=== PATIENT | male | born 1975 | race American Indian/Alaskan Native ===

== ENCOUNTER 2018-09-02 14:56 | Observation (INO) | payer MEDICAID ==
[2018-09-02 15:00] VITALS: BMI 34.8
[2018-09-02] MEDS ORDERED: Sodium Chloride 0.9% 1,000 ML IV STA (15:29)
--- NOTE | 2018-09-02 15:33 | ED PDOC ---
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 Patient recently began taking DM version promethozine, which patient states makes him drowsy. Patient denies any fever, chest pain, headache, SOB, n/v/d, abdominal pain, or any other complaints. Time/Duration: Prior to Arrival Symptom Onset: Gradual Symptom Course: Unchanged Activities at Onset: Light Context: Other (hospitla visiting father) Past Medical History - Provider Review Nursing Documentation Reviewed: Yes - Infectious Disease Hx of Infectious Diseases: None - Cardiac Hx Hypertension: Yes - Pulmonary Hx Asthma: Yes Hx Bronchitis: Yes - Psychiatric Hx Substance Use: No - Anesthesia Hx Anesthesia: No Hx Anesthesia Reactions: No Hx Malignant Hyperthermia: No Family/Social History - Physician Review Nursing Documentation Reviewed: Yes Family/Social History: Unknown Family HX Smoking Status: Never Smoked Hx Alcohol Use: No Hx Substance Use: No Allergies/Home Meds Allergies/Adverse Reactions: Allergies No Known Allergies Allergy (Verified 09/02/18 15:11) Review of Systems - Physician Review All systems were reviewed & negative as marked: Yes - Review of Systems Constitutional: Normal Eyes: Normal ENT: Normal Respiratory: Normal. absent: SOB, Cough Cardiovascular: Normal. absent: Chest Pain Gastrointestinal: Normal. absent: Abdominal Pain, Diarrhea, Nausea, Vomiting Genitourinary Male: Normal. absent: Frequency, Hematuria Musculoskeletal: Normal. absent: Back Pain, Neck Pain Skin: Normal. absent: Rash Neurological: Dizziness Endocrine: Diaphoresis Hemo/Lymphatic: Normal Psychiatric: Normal Physical Exam - Physical Exam Narrative Physical Exam (Text): 09/02/18 15:34 Constitutional: No acute distress. Head: Normocephalic. Atraumatic. Eyes: PERRL. ENT: Moist mucous membranes. Neck: Supple. Cardiovascular: Regular rate. Chest: No tenderness. Respiratory: Clear to auscultation bilaterally. GI: Soft. Nontender. Nondistended. Back: No CVA tenderness. Musculoskeletal: No tenderness or swelling of extremities. Skin: No rash. Neurologic: Alert, no focal deficit. Vital Signs Temp Pulse Resp BP Pulse Ox 09/02/18 14:58 97.4 F L 87 19 131/78 98 Medical Decision Making ED Course and Treatment: 09/02/18 15:34 Impression: 43 year old male presents to the ED complaining of an episode of sweating and wooziness. Plan: -- EKG -- CXR -- Sodium Chloride Progress Notes: EKG NSR 75 bpm, large voltages. T wave inversion V6. 09/02/18 16:46 CXR reviewed, shows: FINDINGS: Examination limited by habitus. LUNGS: No focal consolidation. Please note that chest x-ray has limited sensitivity for the detection of pulmonary masses. PLEURA: No significant pleural effusion identified. No definite pneumothorax . CARDIOVASCULAR: Heart size appears within limits. No significant atherosclerotic calcification present. OSSEOUS STRUCTURES: Degenerative changes. VISUALIZED UPPER ABDOMEN: Unremarkable. OTHER FINDINGS: None. IMPRESSION: No focal consolidation. Dr. Patel accepts patient for observation to hospitalist service. - Scribe Statement The provider has reviewed the documentation as recorded by the Scribe Mala Abarca All medical record entries made by the Scribe were at my direction and personally dictated by me. I have reviewed the chart and agree that the record accurately reflects my personal performance of the history, physical exam, medical decision making, and the department course for this patient. I have also personally directed, reviewed, and agree with the discharge instructions and disposition. Disposition/Present on Arrival - Present on Arrival Any Indicators Present on Arrival: No History of DVT/PE: No History of Uncontrolled Diabetes: No Urinary Catheter: No History of Decub. Ulcer: No History Surgical Site Infection Following: None - Disposition Have Diagnosis and Disposition been Completed?: Yes Diagnosis: Elevated CK, Near syncope Disposition: HOSPITALIZED Disposition Time: 17:45 Patient Plan: Observation, Telemetry Condition: FAIR
[2018-09-02 16:00] LABS: EOS # 0.1 (0.0-0.7); EOS % 1.3 % (1.5-5.0); GRAN # 7.11 (1.4-6.5); GRAN % 72.8 % (50.0-68.0); LYMPH # 1.9 (1.2-3.4); MEAN CELL VOLUME 91.9 fl (80.0-105.0); MEAN CORPUSCULAR HGB CONC 32.6 g/dl (31.0-37.0); MEAN PLATELET VOLUME 10.3 fl (7.0-11.0); MONO # 0.7 (0.1-0.6); MONO % 6.9 % (1.0-6.0); RBC 5.34 10^6/uL (3.5-6.1); RED CELL DISTRIBUTION WIDTH 14.8 % (11.5-14.5); WHITE BLOOD COUNT 9.8 10^3/uL (4.5-11.0)
[2018-09-02 16:21] LABS: ALB/GLOB RATIO 1.2 (1.1-1.8); ALBUMIN 3.7 g/dL (3.0-4.8); ALT/SGPT 66 U/L (7-56); AST/SGOT 59 U/L (17-59); BLOOD UREA NITROGEN 20 mg/dL (7-21); CALCIUM 9.6 mg/dL (8.4-10.5); GFR NON-AFRICAN AMERICAN > 60
[2018-09-02 16:28] LABS: TROPONIN I 0.02 ng/mL
--- NOTE | 2018-09-02 16:44 | RAD ---
HISTORY: lightheaded COMPARISON: None available. TECHNIQUE: Chest, one view. FINDINGS: Examination limited by habitus. LUNGS: No focal consolidation. Please note that chest x-ray has limited sensitivity for the detection of pulmonary masses. PLEURA: No significant pleural effusion identified. No definite pneumothorax . CARDIOVASCULAR: Heart size appears within limits. No significant atherosclerotic calcification present. OSSEOUS STRUCTURES: Degenerative changes. VISUALIZED UPPER ABDOMEN: Unremarkable. OTHER FINDINGS: None. IMPRESSION: No focal consolidation.
[2018-09-02 16:54] LABS: CK-MB 1.6 ng/mL (0.0-3.6)
[2018-09-02] MEDS ORDERED: Sodium Chloride 0.9% 1,000 ML IV SCH (19:45)
[2018-09-03 00:16] LABS: BASO # 0.01 K/mm3 (0.0-2.0); BASO % 0.1 % (0.0-3.0); EOS # 0.2 (0.0-0.7); EOS % 1.6 % (1.5-5.0); GRAN # 5.81 (1.4-6.5); GRAN % 61.3 % (50.0-68.0); HEMOGLOBIN 16.1 g/dL (14.0-18.0); LYMPH # 2.8 (1.2-3.4); LYMPH % 29.3 % (22.0-35.0); MEAN CELL VOLUME 91.5 fl (80.0-105.0); MEAN CORPUSCULAR HEMOGLOBIN 30.3 pg (25.0-35.0); MEAN CORPUSCULAR HGB CONC 33.1 g/dl (31.0-37.0); MONO # 0.7 (0.1-0.6); MONO % 7.7 % (1.0-6.0); RBC 5.31 10^6/uL (3.5-6.1); RED CELL DISTRIBUTION WIDTH 14.9 % (11.5-14.5); WHITE BLOOD COUNT 9.5 10^3/uL (4.5-11.0)
[2018-09-03] MEDS ORDERED: Albuterol-Ipratrop 3 mg / 0.5 (3 ml) UD IH PRN (00:18)
[2018-09-03 00:31] LABS: ALB/GLOB RATIO 1.1 (1.1-1.8); ALBUMIN 3.8 g/dL (3.0-4.8); ALT/SGPT 61 U/L (7-56); AST/SGOT 62 U/L (17-59); BLOOD UREA NITROGEN 20 mg/dL (7-21); CALCIUM 9.7 mg/dL (8.4-10.5); GFR NON-AFRICAN AMERICAN > 60
[2018-09-03 00:48] LABS: TROPONIN I 0.01 ng/mL
[2018-09-03] MEDS ORDERED: Levalbuterol 0.63 MG/3 ML Inhal Soln UD IH PRN (00:48)
[2018-09-03] MEDS ORDERED: Levalbuterol 1.25 MG/3 ML Inhal Soln UD IH PRN (00:49)
[2018-09-03] MEDS ORDERED: Labetalol 5 mg/ml Inj 20ML IV ONE (00:54)
[2018-09-03] MEDS ORDERED: Nitroglycerin 2% Ointment Foilpak UD TOP PRN (01:15)
[2018-09-03 01:19] LABS: OPIATES, UR NEGATIVE (NEGATIVE); PHENCYCLIDINE, UR NEGATIVE (NEGATIVE)
[2018-09-03 01:24] LABS: BARBITURATES, UR NEGATIVE (NEGATIVE); BENZODIAZEPINES, UR NEGATIVE (NEGATIVE)
--- NOTE | 2018-09-03 02:19 | CP.PCM.HP ---
<Bacilio Guerrero - Last Filed: 09/03/18 01:43> History of Present Illness - History of Present Illness History of Present Illness: Bacilio Peñalozael PGY1 - Internal Medicine Pan Puller - Medicine H&P CC: Syncope/Near syncope 43M w/ a PMH of asthma, and HTN presented to [facility] ED on 09/02 after having [employer] SERVICE SALES REPRESENTATIVE called on him earlier in the day while he was visiting family member for complaints of syncope/near syncope. Patient reported that for the past week he has been having complaints of cough/ asthma exacerbation, fevers, prior to complaints of lightheadedness patient reported taking promethazine and losartan. Patient reports during [employer] SALES REPRESENTATIVE he was asked to ambulated and was subsequently shown to have gait instability. During [employer] SALES REPRESENTATIVE patient was normotensive as reported by patient. He states he felt dizzy during [employer] REPRESENTATIVE however did not loose consciousness. Upon evaluation patient is no longer complaining of dizziness or lightheadedness. After being transferred to floors, he was found to have elevated blood pressure and pressure like chest pain. He reports the pressure began after being given apresoline dose. Upon ROS patient is complaining of shortness of breath, cough, improved chest pressure, Denies abd pain, n/v/d/c, hematuria, dysuria PMD: [facility] Pharmacy: [facility] - [phone] PMH: asthma, htn PSH: denies Home Rx: Prednisone 10mg QD, Promethazine prn, levaquin 750mg daily (started 08/29), Allergies: NKDA Social: Denies smoking, etoh, illicit drugs Fam Hx: Father: DM, HTN, HLD, CAD; Mother passed unknown causes Present on Admission - Present on Admission Any Indicators Present on Admission: No Review of Systems - Review of Systems All systems: reviewed and no additional remarkable complaints except Review of Systems: as per HPI Past Patient History - Infectious Disease Hx of Infectious Diseases: None - Past Social History Smoking Status: Never Smoked - CARDIAC Hx Hypertension: Yes - PULMONARY Hx Asthma: Yes Hx Bronchitis: Yes - MUSCULOSKELETAL/RHEUMATOLOGICAL Hx Falls: No - PSYCHIATRIC Hx Substance Use: No - SURGICAL HISTORY Hx Surgeries: No - ANESTHESIA Hx Anesthesia: No Hx Anesthesia Reactions: No Hx Malignant Hyperthermia: No Meds Allergies/Adverse Reactions: Allergies Allergy/AdvReac Type Severity Reaction Status Date / Time No Known Allergies Allergy Verified 09/02/18 15:11 Physical Exam - Constitutional Appears: Well, Non-toxic, In Acute Distress - Head Exam Head Exam: ATRAUMATIC, NORMOCEPHALIC - Eye Exam Eye Exam: EOMI, Normal appearance, PERRL - ENT Exam ENT Exam: Mucous Membranes Moist, Normal Exam - Neck Exam Neck exam: Positive for: Normal Inspection - Respiratory Exam Respiratory Exam: Decreased Breath Sounds, Wheezes - Cardiovascular Exam Cardiovascular Exam: RRR, +S1, +S2. absent: Systolic Murmur - GI/Abdominal Exam GI & Abdominal Exam: Normal Bowel Sounds, Soft. absent: Tenderness - Extremities Exam Extremities exam: Positive for: pedal pulses present (2+ PT/DP BL ) - Neurological Exam Neurological exam: Alert, CN II-XII Intact, Oriented x3 - Psychiatric Exam Psychiatric exam: Normal Affect, Normal Mood - Skin Skin Exam: Dry, Intact, Normal Color, Warm Results - Vital Signs Recent Vital Signs: Last Vital Signs Temp 98 F 09/02/18 21:11 Pulse 89 09/03/18 01:20 Resp 20 09/02/18 21:11 BP 181/111 H 09/03/18 01:13 Pulse Ox 98 09/02/18 21:11 - Labs Result Diagrams: 09/02/18 23:59 09/02/18 23:59 Labs: Laboratory Results - last 24 hr 09/02/18 09/02/18 09/02/18 15:50 15:50 23:59 WBC 9.8 9.5 RBC 5.34 5.31 Hgb 16.0 16.1 Hct 49.1 48.6 MCV 91.9 91.5 MCH 30.0 30.3 MCHC 32.6 33.1 RDW 14.8 H 14.9 H Plt Count 296 313 MPV 10.3 10.0 Gran % 72.8 H 61.3 Lymph % (Auto) 19.0 L 29.3 [place] % (Auto) 6.9 H 7.7 H Eos % (Auto) 1.3 L 1.6 Baso % (Auto) 0.0 0.1 Gran # 7.11 H 5.81 Lymph # (Auto) 1.9 2.8 [place] # (Auto) 0.7 H 0.7 H Eos # (Auto) 0.1 0.2 Baso # (Auto) 0.00 0.01 Sodium 138 Potassium 4.0 Chloride 101 Carbon Dioxide 32 Anion Gap 9 L BUN 20 Creatinine 1.2 Est GFR ( Amer) > 60 Est GFR (Non-Af Amer) > 60 Random Glucose 114 H Calcium 9.6 Phosphorus Magnesium Total Bilirubin 0.5 AST 59 ALT 66 H Alkaline Phosphatase 79 Total Creatine Kinase 1027 H CK-MB (CK-2) 1.6 CK-MB (CK-2) % Cancelled Troponin I 0.02 Total Protein 6.8 Albumin 3.7 Globulin 3.1 Albumin/Globulin Ratio 1.2 Urine Opiates Screen Urine Methadone Screen Ur Barbiturates Screen Ur Phencyclidine Scrn Ur Amphetamines Screen U Benzodiazepines Scrn U Oth Cocaine Metabols U Cannabinoids Screen 09/02/18 09/03/18 23:59 00:46 WBC RBC Hgb Hct MCV MCH MCHC RDW Plt Count MPV Gran % Lymph % (Auto) [place] % (Auto) Eos % (Auto) Baso % (Auto) Gran # Lymph # (Auto) [place] # (Auto) Eos # (Auto) Baso # (Auto) Sodium 139 Potassium 4.4 Chloride 104 Carbon Dioxide 29 Anion Gap 11 BUN 20 Creatinine 1.1 Est GFR ( Amer) > 60 Est GFR (Non-Af Amer) > 60 Random Glucose 115 H Calcium 9.7 Phosphorus 2.3 L Magnesium 2.0 Total Bilirubin 0.4 AST 62 H ALT 61 H Alkaline Phosphatase 94 Total Creatine Kinase CK-MB (CK-2) CK-MB (CK-2) % Troponin I 0.01 D Total Protein 7.3 Albumin 3.8 Globulin 3.5 Albumin/Globulin Ratio 1.1 Urine Opiates Screen Negative Urine Methadone Screen Negative Ur Barbiturates Screen Negative Ur Phencyclidine Scrn Negative Ur Amphetamines Screen Negative U Benzodiazepines Scrn Negative U Oth Cocaine Metabols Negative U Cannabinoids Screen Negative Assessment & Plan - Assessment and Plan (Free Text) Assessment: 43M w/ a PMH of asthma, and HTN presented to [facility] ED on 09/02 after having [employer] SAL[employer] REPRESENTATIVE called on him earlier in the day while he was visiting family member for complaints of syncope/near syncope. Patient was subsequently found to have elevated blood pressure, chest pain, and a history of recent URI vs PNA. Plan: ACS r/o - Pt. complaining of Left sided chest pressure which relieved w/ sublingual nitro First trop equivocal, second trop negative EKG shows questionable ST segment depression in II,III AVF; no overt ST segement elevations appreciated - as interpreted by me Follow up serial troponin/ Serial EKG Given ASA 325 in ED initially; Further given ASA 81 PO on floors during time of complaints Will continue w/ ASA 81 QD Lipid, TSH/Thyroid, A1C pending Gave Nitroglycerin sublingual during complaints; Can continue w/ Nitro paste 1/2" Q6H PRN HTN as well as chest pain Cardiology consulted, appreciate reccs HTN Urgency: Pressures did not improve w/ 5mg or 15mg of apresoline Given patient is hypertensive (180s/100) post sublingual nitro; Can continue w/ nitro paste 1/2" Q6H PRN SBP >160 Pressures showed further improvement w/ labetolol 20 IVP Resume home losartan 100 BID Will resume home losartan 100mg BID Will Start Amlodipine 5mg PO QD Syncope: CT Head pending Patient has received IV Bolus as well as IV maintenance fluids Echo pending Carotid US pending Will DC IVF given hypertension Asthma Exacerbation 2/2 URI vs PNA Continue w/ prednisone 10mg QD C/w home montelukast 10mg PO HS C/w Levaquin 750mg PO Xopenex PRN Q6H Flu negative Follow up legionella, Strep, ag Patient was seen, examined and discussed w/ attending physician Dr. Ivan Guerrero DO PGY1 - Internal Medicine Pan Puller - Date & Time Date: 09/03/18 Time: 02:54 <Danielle Love - Last Filed: 09/03/18 06:41> Results - Vital Signs Recent Vital Signs: Last Vital Signs Temp 98.2 F 09/02/18 23:15 Pulse 92 H 09/03/18 02:42 Resp 18 09/03/18 02:42 BP 154/95 H 09/03/18 02:42 Pulse Ox 95 09/03/18 02:42 - Labs Result Diagrams: 09/02/18 23:59 09/02/18 23:59 Labs: Laboratory Results - last 24 hr 09/02/18 09/02/18 09/02/18 15:50 15:50 23:59 WBC 9.8 9.5 RBC 5.34 5.31 Hgb 16.0 16.1 Hct 49.1 48.6 MCV 91.9 91.5 MCH 30.0 30.3 MCHC 32.6 33.1 RDW 14.8 H 14.9 H Plt Count 296 313 MPV 10.3 10.0 Gran % 72.8 H 61.3 Lymph % (Auto) 19.0 L 29.3 [place] % (Auto) 6.9 H 7.7 H Eos % (Auto) 1.3 L 1.6 Baso % (Auto) 0.0 0.1 Gran # 7.11 H 5.81 Lymph # (Auto) 1.9 2.8 [place] # (Auto) 0.7 H 0.7 H Eos # (Auto) 0.1 0.2 Baso # (Auto) 0.00 0.01 Sodium 138 Potassium 4.0 Chloride 101 Carbon Dioxide 32 Anion Gap 9 L BUN 20 Creatinine 1.2 Est GFR ( Amer) > 60 Est GFR (Non-Af Amer) > 60 Random Glucose 114 H Calcium 9.6 Phosphorus Magnesium Total Bilirubin 0.5 AST 59 ALT 66 H Alkaline Phosphatase 79 Total Creatine Kinase 1027 H CK-MB (CK-2) 1.6 CK-MB (CK-2) % Cancelled Troponin I 0.02 Total Protein 6.8 Albumin 3.7 Globulin 3.1 Albumin/Globulin Ratio 1.2 Urine Opiates Screen Urine Methadone Screen Ur Barbiturates Screen Ur Phencyclidine Scrn Ur Amphetamines Screen U Benzodiazepines Scrn U Oth Cocaine Metabols U Cannabinoids Screen Influenza Typ A,B (EIA) 09/02/18 09/03/18 09/03/18 23:59 00:46 01:30 WBC RBC Hgb Hct MCV MCH MCHC RDW Plt Count MPV Gran % Lymph % (Auto) [place] % (Auto) Eos % (Auto) Baso % (Auto) Gran # Lymph # (Auto) [place] # (Auto) Eos # (Auto) Baso # (Auto) Sodium 139 Potassium 4.4 Chloride 104 Carbon Dioxide 29 Anion Gap 11 BUN 20 Creatinine 1.1 Est GFR ( Amer) > 60 Est GFR (Non-Af Amer) > 60 Random Glucose 115 H Calcium 9.7 Phosphorus 2.3 L Magnesium 2.0 Total Bilirubin 0.4 AST 62 H ALT 61 H Alkaline Phosphatase 94 Total Creatine Kinase CK-MB (CK-2) CK-MB (CK-2) % Troponin I 0.01 D Total Protein 7.3 Albumin 3.8 Globulin 3.5 Albumin/Globulin Ratio 1.1 Urine Opiates Screen Negative Urine Methadone Screen Negative Ur Barbiturates Screen Negative Ur Phencyclidine Scrn Negative Ur Amphetamines Screen Negative U Benzodiazepines Scrn Negative U Oth Cocaine Metabols Negative U Cannabinoids Screen Negative Influenza Typ A,B (EIA) Negative for flu a/b Attending/Attestation - Attestation I have personally seen and examined this patient.: Yes I have fully participated in the care of the patient.: Yes I have reviewed all pertinent clinical information: Yes Notes (Text): 09/03/18 06:38 Chest tightness started after getting 15 mg of IV hydralazine. Avoid hydralazine if possible. Consider to add norvasc if needed better BP control although would not lower BP by more than 25 % in first 24 - 48 hours. Can always F/U PCP with recommendation to start Norvasc as out pt. once cleared by cardiology. Pt. is on losartan 100 BID.
[2018-09-03 07:12] LABS: HEMOGLOBIN 15.7 g/dL (14.0-18.0); MEAN CELL VOLUME 91.9 fl (80.0-105.0); MEAN CORPUSCULAR HEMOGLOBIN 30.1 pg (25.0-35.0); MEAN CORPUSCULAR HGB CONC 32.8 g/dl (31.0-37.0); MEAN PLATELET VOLUME 10.5 fl (7.0-11.0); RBC 5.21 10^6/uL (3.5-6.1); WHITE BLOOD COUNT 8.4 10^3/uL (4.5-11.0)
[2018-09-03 07:39] LABS: FREE T4 1.17 ng/dL (0.78-2.19)
[2018-09-03 08:02] LABS: ALB/GLOB RATIO 1.1 (1.1-1.8); ALBUMIN 3.7 g/dL (3.0-4.8); BLOOD UREA NITROGEN 22 mg/dL (7-21); CALCIUM 9.5 mg/dL (8.4-10.5); GFR NON-AFRICAN AMERICAN > 60; HDL CHOLESTEROL 48 mg/dL (29-60)
[2018-09-03 08:05] LABS: ALT/SGPT 62 U/L (7-56); AST/SGOT 53 U/L (17-59)
[2018-09-03 08:12] LABS: LDL CHOLESTEROL 75 mg/dL (0-129)
[2018-09-03] MEDS ORDERED: guaiFENesin DM 100 mg-10 mg/5 ml UD PO PRN (08:45)
--- NOTE | 2018-09-03 09:42 | US ---
PROCEDURE: Bilateral carotid artery duplex ultrasound HISTORY: Carotid stenosis PHYSICIAN(S): Chris Tiwari MD. TECHNIQUE: Duplex sonography and color-flow Doppler were used to evaluate the carotid bifurcations and limited segments of the vertebral arteries bilaterally. FINDINGS: There is mild smooth hypoechoic plaque noted at the carotid bifurcations bilaterally. The peak systolic velocity in the proximal right internal carotid artery is 64 cm/sec. This corresponds to a 20 to 39% proximal right ICA stenosis. Normal systolic velocities are noted in the proximal right external carotid artery. There is antegrade flow in the right vertebral artery. The peak systolic velocity in the proximal left internal carotid artery is 79 cm/sec. This corresponds to a 20 to 39% proximal left ICA stenosis. Normal systolic velocities are noted in the proximal left external carotid artery. There is antegrade flow in the left vertebral artery. IMPRESSION: 1. Bilateral 20-39% proximal ICA stenoses. 2. Antegrade flow in both vertebral arteries.
[2018-09-03] MEDS: levoFLOXacin 750 mg in D5W 150 ML BAG IVPB SCH (10:05)
--- NOTE | 2018-09-03 10:22 | CT ---
Date of service: 09/03/2018 PROCEDURE: CT HEAD WITHOUT CONTRAST. HISTORY: syncope COMPARISON: None available. TECHNIQUE: Axial computed tomography images were obtained through the head/brain without intravenous contrast. Radiation dose: Total exam DLP = 998.18 mGy-cm. This CT exam was performed using one or more of the following dose reduction techniques: Automated exposure control, adjustment of the mA and/or kV according to patient size, and/or use of iterative reconstruction technique. FINDINGS: HEMORRHAGE: No intracranial hemorrhage. BRAIN: No mass effect or edema. Periventricular white matter hypodensity, nonspecific. 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 VENTRICLES: Unremarkable. No hydrocephalus. CALVARIUM: Unremarkable. PARANASAL SINUSES: Unremarkable as visualized. No significant inflammatory changes. MASTOID AIR CELLS: Unremarkable as visualized. No inflammatory changes. OTHER FINDINGS: None. IMPRESSION: No acute hemorrhage Periventricular white matter hypodensity, nonspecific. 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
--- NOTE | 2018-09-03 11:12 | CARD ---
APPROVED REPORT Date of service: 09/02/2018 EKG Measurement Heart [id number] <Conclusion> Normal sinus rhythm Voltage criteria for left ventricular hypertrophy ST-T Changes.
--- NOTE | 2018-09-03 13:30 | CARD ---
APPROVED REPORT Date of service: 09/03/2018 EKG Measurement Heart [id number] <Conclusion> Unusual P axis, possible ectopic atrial rhythm Minimal voltage criteria for LVH, may be normal variant T wave abnormality, consider inferolateral ischemia Abnormal ECG
--- NOTE | 2018-09-03 13:45 | CARD ---
APPROVED REPORT Date of service: 09/03/2018 EKG Measurement Heart [id number] <Conclusion> Sinus tachycardia Possible Left atrial enlargement Left ventricular hypertrophy ST & T wave abnormality, consider inferolateral ischemia Abnormal ECG
--- NOTE | 2018-09-03 15:47 | CARD ---
APPROVED REPORT Date of service: 09/03/2018 EXAM: Two-dimensional and M-mode echocardiogram with Doppler and color Doppler. INDICATION Syncope ACS 2D DIMENSIONS Left Atrium (2D)4.1 (1.6-4.0cm)IVSd1.8 (0.7-1.1cm) LVDd4.6 (3.9-5.9cm)PWd1.7 (0.7-1.1cm) LVDs3.1 (2.5-4.0cm)FS (%) 32.1 % LVEF (%)60.3 (>50%) M-Mode DIMENSIONS Aortic Root2.70 (2.2-3.7cm)Aortic Cusp Exc.1.60 (1.5-2.0cm) Aortic Valve AoV Peak Arxpouhz224.0cm/Christos Peak GR.5mmHg Mitral Valve MV E Vxueomrk53.1cm/sMV A Fwhzzqwz65.7cm/sE/A ratio1.3 TDI E/Lateral E'0.0E/Medial E'0.0 Tricuspid Valve TR Peak [id number]/sRAP [id number] Peak Gr.11mmHg [id number] LEFT VENTRICLE The left ventricle is normal size. There is moderate to severe concentric left ventricular hypertrophy. The left ventricular function is normal. The left ventricular ejection fraction is within the normal range. There is normal LV segmental wall motion. Transmitral Doppler flow pattern is abnormal. RIGHT VENTRICLE The right ventricle is normal size. There is normal right ventricular wall thickness. The right ventricular systolic function is normal. ATRIA The left atrium is borderline dilated. The right atrium size is normal. AORTIC VALVE The aortic valve is mildly thickened. No aortic regurgitation is present. There is no aortic valvular stenosis. MITRAL VALVE The mitral valve is mildly thickened. Mitral regurgitation is trace. There is no mitral valve stenosis. TRICUSPID VALVE There is mild tricuspid regurgitation. GREAT VESSELS The aortic root is normal in size. PERICARDIAL EFFUSION There is no pericardial effusion. <Conclusion> There is moderate to severe concentric left ventricular hypertrophy. The left ventricular function is normal. The left ventricular ejection fraction is within the normal range. There is normal LV segmental wall motion. Transmitral Doppler flow pattern is abnormal. There is mild tricuspid regurgitation.
[2018-09-03] MEDS ORDERED: Albuterol-Ipratrop 3 mg / 0.5 (3 ml) UD IH STA (19:20)
--- NOTE | 2018-09-03 19:34 | CON ---
DATE: 09/03/2018 REASON FOR CONSULTATION: Uncontrolled hypertension. 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 The patient presented because of dizziness and diaphoresis. The patient denies any syncope and he denies any retrosternal chest pain. The patient is unaware of any prior history of heart attack in the past. SOCIAL HISTORY: Nonsmoker. 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 MEDICATIONS: Aspirin 81 mg once a day, clonidine 0.2 mg twice a day, Cozaar 100 mg twice a day, subcutaneous heparin 5000 units every 12 hours, Levaquin 750 mg intravenously daily, Lopressor 25 mg twice a day, Norvasc 5 mg once a day, prednisone 10 mg daily, Robitussin DM 5 mL every 4 hours p.r.n., and Xopenex inhaler every 6 hours. REVIEW OF SYSTEMS: No fever or chills. No nausea or vomiting. PHYSICAL EXAMINATION: GENERAL: The patient is a middle-aged male who does not appear to be in acute distress. VITAL SIGNS: Blood pressure 157/103, heart rate 73, temperature 98.1, most recent blood pressure was 181/127 that is when the patient received Lasix 40 mg IV push as single dose and 0.2 mg of clonidine orally as stat dose. HEENT: Normocephalic. CHEST: Clear. HEART: S1 and S2 regular. EXTREMITIES: Trace edema. LABORATORY DATA: Today's hemoglobin, hematocrit, white count and platelet count are within normal limits. Today's SMA-7 is within normal limits except BUN of 22 and troponin was 0.02, 0.01, and 0.04. D-dimer is within normal limits. Drug screen is negative. EKG revealed sinus rhythm, LVH consider inferolateral ischemia. Carotid Doppler, no hemodynamically significant disease. 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 ASSESSMENT: 1. Uncontrolled hypertension. 2. Dizziness. 3. Rule out cerebrovascular accident. 4. Troponin is in indeterminate range. RECOMMENDATIONS: Continue aspirin 81 mg once a day, clonidine 0.2 mg twice a day, Cozaar 100 mg once a day, subcutaneous heparin 5000 units every 12 hours, Lopressor 25 mg twice a day, Norvasc 5 mg once a day, and prednisone 10 mg once a day. Case was discussed with the nurse if the blood pressure is not controlled after intravenous Lasix and clonidine, ICU evaluation is requested for initiation of labetalol drip or nitroglycerin drip. I will review the echocardiographic study performed today. I recommend Neurology consult and brain MRI in the meantime. Reno Torres MD
[2018-09-03] MEDS: Budesonide 0.25 mg/2 ml Inhal Susp UD IH SCH (19:45)
[2018-09-03] MEDS: Arformoterol 15 mcg/2 ml Inh Sol IH SCH (19:45)
[2018-09-03] MEDS ORDERED: Fluticasone-Salmeterol 100-50mcg Diskus IH SCH (22:00)
[2018-09-04 06:59] LABS: HEMOGLOBIN 16.2 g/dL (14.0-18.0); MEAN CELL VOLUME 90.8 fl (80.0-105.0); MEAN CORPUSCULAR HEMOGLOBIN 29.9 pg (25.0-35.0); MEAN CORPUSCULAR HGB CONC 32.9 g/dl (31.0-37.0); MEAN PLATELET VOLUME 10.4 fl (7.0-11.0); RBC 5.42 10^6/uL (3.5-6.1); WHITE BLOOD COUNT 11.8 10^3/uL (4.5-11.0)
--- NOTE | 2018-09-04 07:09 | CP.PCM.PN ---
Subjective - Date & Time of Evaluation Date of Evaluation: 09/04/18 Time of Evaluation: 07:08 - Subjective Subjective: Resident Progress Note for Hospitalist Service Objective - Vital Signs/Intake and Output Vital Signs (last 24 hours): Temp Pulse Resp BP Pulse Ox 98.1 F 72 20 145/89 96 09/03/18 19:23 09/04/18 02:00 09/03/18 19:23 09/03/18 23:55 09/03/18 19:23 - Medications Medications: Current Medications Arformoterol Tartrate (Brovana) 15 mcg IH [id number] [facility] Last Admin: 09/03/18 19:45 Dose: 15 mcg Aspirin (Aspirin Chewable) 81 mg PO DAILY [facility] Last Admin: 09/03/18 10:05 Dose: 81 mg Budesonide (Pulmicort Respules) 0.25 mg IH [id number] [facility] Last Admin: 09/03/18 19:45 Dose: 0.25 mg Clonidine HCl (Catapres) 0.2 mg PO BID [facility] Guaifenesin/Dextromethorphan (Robitussin Dm) 5 ml PO Q4H PRN PRN Reason: Cough Heparin Sodium (Porcine) (Heparin) 5,000 units SC Q12 [facility]; Protocol Last Admin: 09/03/18 21:38 Dose: Not Given Hydrochlorothiazide (Hydrodiuril) 25 mg PO DAILY [facility] Last Admin: 09/03/18 19:56 Dose: 25 mg Levalbuterol HCl (Xopenex) 1.25 mg IH [id number] PRN PRN Reason: Shortness of Breath Last Admin: 09/03/18 01:20 Dose: 1.25 mg Levofloxacin/Dextrose (Levaquin 750mg) 750 mg IVPB DAILY [facility]; Protocol Last Admin: 09/03/18 10:05 Dose: 750 mg Losartan Potassium (Cozaar) 100 mg PO BID [facility] Last Admin: 09/03/18 17:22 Dose: 100 mg Metoprolol Tartrate (Lopressor) 25 mg PO BID [facility] Montelukast Sodium (Singulair) 10 mg PO HS [facility] Last Admin: 09/03/18 21:34 Dose: 10 mg Nitroglycerin (Nitro-Bid 2% Oint) 0 ea TOP Q6H PRN PRN Reason: Systolic Blood Pressure Last Admin: 09/03/18 06:32 Dose: 1 ea Prednisone (Prednisone Tab) 40 mg PO DAILY [facility] Last Admin: 09/03/18 14:39 Dose: 40 mg - Labs Labs: 09/04/18 05:30 09/03/18 06:00 - Additional Findings Additional findings: - Constitutional Appears: Well, Non-toxic, In Acute Distress - Head Exam Head Exam: ATRAUMATIC, NORMOCEPHALIC - Eye Exam Eye Exam: EOMI, Normal appearance, PERRL - ENT Exam ENT Exam: Mucous Membranes Moist, Normal Exam - Neck Exam Neck exam: Positive for: Normal Inspection - Respiratory Exam Respiratory Exam: Decreased Breath Sounds, Wheezes - Cardiovascular Exam Cardiovascular Exam: RRR, +S1, +S2. absent: Systolic Murmur - GI/Abdominal Exam GI & Abdominal Exam: Normal Bowel Sounds, Soft. absent: Tenderness - Extremities Exam Extremities exam: Positive for: pedal pulses present (2+ PT/DP BL ) - Neurological Exam Neurological exam: Alert, CN II-XII Intact, Oriented x3 - Psychiatric Exam Psychiatric exam: Normal Affect, Normal Mood - Skin Skin Exam: Dry, Intact, Normal Color, Warm Assessment and Plan - Assessment and Plan (Free Text) Assessment: 43M w/ a PMH of asthma, and HTN presented to [facility] ED on 09/02 after having [employer] called on him earlier in the day while he was visiting family member for complaints of syncope/near syncope. Patient was subsequently found to have elevated blood pressure, chest pain, and a history of recent URI vs PNA. Plan: ACS r/o - Pt. complaining of Left sided chest pressure which relieved w/ sublingual nitro First trop equivocal, second trop negative EKG shows questionable ST segment depression in II,III AVF; no overt ST segement elevations appreciated - as interpreted by me Follow up serial troponin/ Serial EKG Given ASA 325 in ED initially; Further given ASA 81 PO on floors during time of complaints Will continue w/ ASA 81 QD Lipid, TSH/Thyroid, A1C pending Gave Nitroglycerin sublingual during complaints; Can continue w/ Nitro paste 1/2" Q6H PRN HTN as well as chest pain Cardiology consulted, appreciate reccs HTN Urgency: Pressures did not improve w/ 5mg or 15mg of apresoline Given patient is hypertensive (180s/100) post sublingual nitro; Can continue w/ nitro paste 1/2" Q6H PRN SBP >160 Pressures showed further improvement w/ labetolol 20 IVP Resume home losartan 100 BID Will resume home losartan 100mg BID Will Start Amlodipine 5mg PO QD Syncope: CT Head pending Patient has received IV Bolus as well as IV maintenance fluids Echo pending Carotid US pending Will DC IVF given hypertension Asthma Exacerbation 2/2 URI vs PNA Continue w/ prednisone 10mg QD C/w home montelukast 10mg PO HS C/w Levaquin 750mg PO Xopenex PRN Q6H Flu negative Follow up legionella, Strep, ag
[2018-09-04 07:22] LABS: ALB/GLOB RATIO 1.2 (1.1-1.8); ALBUMIN 4.2 g/dL (3.0-4.8); ALT/SGPT 56 U/L (7-56); AST/SGOT 43 U/L (17-59); BLOOD UREA NITROGEN 31 mg/dL (7-21); CALCIUM 9.9 mg/dL (8.4-10.5); GFR NON-AFRICAN AMERICAN 51
[2018-09-04] MEDS: Budesonide 0.25 mg/2 ml Inhal Susp UD IH SCH (07:46)
[2018-09-04] MEDS: Arformoterol 15 mcg/2 ml Inh Sol IH SCH (07:46)
[2018-09-04 10:02] LABS: PH,URINE 6.5 (4.7-8.0); URINE BILIRUBIN NEGATIVE (NEGATIVE); URINE BLOOD NEGATIVE (NEGATIVE); URINE GLUCOSE (UA) NEGATIVE (NEGATIVE); URINE LEUKOCYTE ESTERASE NEGATIVE Leu/uL (NEGATIVE); URINE PROTEIN TRACE mg/dL (<30 mg/dL); URINE UROBILINOGEN 0.2 E.U./dL (<1 E.U./dL)
[2018-09-04 10:10] LABS: URINE APPEARANCE CLEAR (CLEAR); URINE COLOR YELLOW (YELLOW)
--- NOTE | 2018-09-04 10:26 | MRI ---
Date of service: 09/03/2018 PROCEDURE: MRI BRAIN WITHOUT CONTRAST HISTORY: syncope COMPARISON: Noncontrast head CT from 09/03/2018. TECHNIQUE: Multiplanar, multisequence MR images of the brain were obtained without intravenous contrast enhancement. FINDINGS: HEMORRHAGE: None DWI: No evidence of an acute or early subacute infarction. BRAIN PARENCHYMA: There is confluent T2/FLAIR hyperintense signal in the periventricular white matter and paucity of periventricular white matter. There is a nonspecific focal T2/FLAIR hyperintensity in the left basal ganglia, nonspecific and may represent gliosis. There is no mass, mass effect or abnormal extra-axial fluid collection. 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 VENTRICLES: Ex vacuo ventricular dilatation. No hydrocephalus. CRANIUM: Unremarkable. 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 PARANASAL SINUSES/MASTOIDS: There is polypoid mucosal thickening in the maxillary sinuses and small left mastoid effusion. There is mild mucosal thickening in the ethmoid air cells. The remaining included paranasal sinuses are clear. VASCULAR SYSTEM: There are normal signal voids in the larger intracranial arteries. OTHER FINDINGS: None IMPRESSION: 1. No acute intracranial abnormality. 2. Confluent periventricular white matter changes with paucity of periventricular white matter is likely related to periventricular leukomalacia. 3. 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
[2018-09-04 10:30] LABS: URINE RBC NEGATIVE /hpf (0-2)
[2018-09-04 10:31] LABS: URINE BACTERIA FEW /hpf
[2018-09-04] MEDS: levoFLOXacin 750 mg in D5W 150 ML BAG IVPB SCH (10:58)
--- NOTE | 2018-09-04 11:28 | CP.PCM.CON ---
History of Present Illness - History of Present Illness History of Present Illness: Neurology Consult note for Dr. Maradiaga Patient is a 43 M with a history of asthma and hypertension who presented with complaints of hot flashes and desequilibrium when walking. Patient states he was recently hospitalized at [facility] for an asthma exacerbation and seubsequently placed on levaquin and promethazine. Patient states that what led to that hospitalization were the same symptoms he experienced at [facility]. Patent states he was sitting with his father who was a patient at [facility] and then suddenly felt his head become wet from sweat, also noted at the same time he experienced a very cool breeze hitting him from the fan. He then states to his father he wasn't' feeling well and would like a drink of water. Nurse was called in and after assessing patient, felt that patient needed further evaluation. Patient said when he would take his initial step he did feel a bit unbalanced but that is very normal for him considering he has a short leg, causing a 1 inch discrepancy. Patient denies headaches, dizziness. Admits to blurry vision. [id number] - [phone] PMH: asthma, htn PSH: denies Home Rx: Prednisone 10mg QD, Promethazine prn, levaquin 750mg daily (started 08/29), Allergies: NKDA Social: Denies smoking, etoh, illicit drugs Fam Hx: Father: DM, HTN, HLD, CAD; Mother passed unknown causes Review of Systems - Constitutional Constitutional: Excessive Sweating. absent: Chills, Fever - EENT Eyes: Blurred Vision Ears: absent: Dizziness - Cardiovascular Cardiovascular: absent: Chest Pain, Dyspnea - Respiratory Respiratory: absent: Cough, Dyspnea - Gastrointestinal Gastrointestinal: absent: Diarrhea, Nausea, Vomiting - Genitourinary Genitourinary: absent: Dysuria - Neurological Neurological: Disequilibrium, Weakness (left sided from childhood). absent: Confusion, Dizziness - Psychiatric Psychiatric: absent: Anxiety - Endocrine Endocrine: absent: Fatigue Past Patient History - Infectious Disease Hx of Infectious Diseases: None - Past Social History Smoking Status: Never Smoked - CARDIAC Hx Hypertension: Yes - PULMONARY Hx Asthma: Yes Hx Bronchitis: Yes - MUSCULOSKELETAL/RHEUMATOLOGICAL Hx Falls: No - PSYCHIATRIC Hx Substance Use: No - SURGICAL HISTORY Hx Surgeries: No - ANESTHESIA Hx Anesthesia: No Hx Anesthesia Reactions: No Hx Malignant Hyperthermia: No Meds Home Medications: Home Medication List Medication Instructions Recorded Confirmed Type Aspirin [Aspirin Chewable] 81 mg PO DAILY 14 Days chew 09/04/18 Rx Blood Pressure Test Kit-Medium 1 each [facility] DAILY #1 kit 09/04/18 Rx [Blood Pressure Cuff Monitor] Losartan [Cozaar] 150 mg PO DAILY 14 Days tab 09/04/18 Rx cloNIDine [Catapres] 0.2 mg PO BID 14 Days tab 09/04/18 Rx hydroCHLOROthiazide [Hydrodiuril] 25 mg PO DAILY 14 Days tab 09/04/18 Rx Allergies/Adverse Reactions: Allergies Allergy/AdvReac Type Severity Reaction Status Date / Time No Known Allergies Allergy Verified 09/02/18 15:11 - Medications Medications: Current Medications Arformoterol Tartrate (Brovana) 15 mcg IH [id number] [facility] Last Admin: 09/04/18 07:46 Dose: 15 mcg Aspirin (Aspirin Chewable) 81 mg PO DAILY [facility] Last Admin: 09/04/18 10:56 Dose: 81 mg Budesonide (Pulmicort Respules) 0.25 mg IH [id number] [facility] Last Admin: 09/04/18 07:46 Dose: 0.25 mg Clonidine HCl (Catapres) 0.2 mg PO BID [facility] Last Admin: 09/04/18 11:17 Dose: Not Given Guaifenesin/Dextromethorphan (Robitussin Dm) 5 ml PO Q4H PRN PRN Reason: Cough Heparin Sodium (Porcine) (Heparin) 5,000 units SC Q12 [facility]; Protocol Last Admin: 09/04/18 10:57 Dose: 5,000 units Hydrochlorothiazide (Hydrodiuril) 25 mg PO DAILY [facility] Last Admin: 09/04/18 10:58 Dose: 25 mg Levalbuterol HCl (Xopenex) 1.25 mg IH [id number] PRN PRN Reason: Shortness of Breath Last Admin: 09/03/18 01:20 Dose: 1.25 mg Levofloxacin/Dextrose (Levaquin 750mg) 750 mg IVPB DAILY [facility]; Protocol Last Admin: 09/04/18 10:58 Dose: 750 mg Losartan Potassium (Cozaar) 100 mg PO BID [facility] Last Admin: 09/04/18 10:57 Dose: 100 mg Montelukast Sodium (Singulair) 10 mg PO HS [facility] Last Admin: 09/03/18 21:34 Dose: 10 mg Nitroglycerin (Nitro-Bid 2% Oint) 0 ea TOP Q6H PRN PRN Reason: Systolic Blood Pressure Last Admin: 09/03/18 06:32 Dose: 1 ea Prednisone (Prednisone Tab) 40 mg PO DAILY [facility] Last Admin: 09/04/18 10:59 Dose: 40 mg Physical Exam - Head Exam Head Exam: ATRAUMATIC, NORMAL INSPECTION, NORMOCEPHALIC - Eye Exam Eye Exam: Nystagmus. absent: Normal appearance (progressive myopia) - Respiratory Exam Respiratory Exam: Clear to Auscultation Bilateral, NORMAL BREATHING PATTERN - Cardiovascular Exam Cardiovascular Exam: REGULAR RHYTHM, +S1, +S2 - GI/Abdominal Exam GI & Abdominal Exam: Normal Bowel Sounds, Soft - Neurological Exam Neurological exam: Alert, CN II-XII Intact, Oriented x3 - Expanded Neurological Exam Expanded Speech: Fluid Speech Cranial nerves: EOM's Intact: Abnormal Left, Facial Sensation: Normal, Tongue Deviation: Normal Cerebellar Function: Finger to Nose: Normal, Heel to [place]: Normal, Romberg: Normal Upper motor neuron: Perico Neglect: Normal, Pronator Drift: Normal, Sensory Ex tinction: Normal Sensory exam: Lower Extremity 2 Point Discrimination: Normal, Lower Extremity Light Touch: Normal Neuro motor strength exam: Left Upper Extremity: 4, Right Upper Extremity: 5, Left Lower Extremity: 4, Right Lower Extremity: 5 Coma Scale Verbal: Oriented - Psychiatric Exam Psychiatric exam: Normal Affect, Normal Mood - Skin Skin Exam: Normal Color, Warm Results - Vital Signs Recent Vital Signs: Last Vital Signs Temp 97.5 F L 09/04/18 08:07 Pulse 87 09/04/18 10:58 Resp 20 09/04/18 08:07 BP 147/85 09/04/18 10:58 Pulse Ox 98 09/04/18 08:07 - Labs Result Diagrams: 09/04/18 05:30 09/04/18 05:30 Labs: Laboratory Results - last 24 hr 09/03/18 09/03/18 09/03/18 06:00 10:50 10:50 WBC RBC Hgb Hct MCV MCH MCHC RDW Plt Count MPV D-Dimer, Quantitative < 200 Sodium Potassium Chloride Carbon Dioxide Anion Gap BUN Creatinine Est GFR ( Amer) Est GFR (Non-Af Amer) POC Glucose (mg/dL) Random Glucose Hemoglobin A1c 6.2 Calcium Total Bilirubin AST ALT Alkaline Phosphatase Troponin I 0.04 D Total Protein Albumin Globulin Albumin/Globulin Ratio Urine Color Urine Appearance Urine pH Ur Specific [place] Urine Protein Urine Glucose (UA) Urine Ketones Urine Blood Urine Nitrate Urine Bilirubin Urine Urobilinogen Ur Leukocyte Esterase Urine RBC Urine WBC Ur Epithelial Cells Urine Bacteria 09/03/18 09/03/18 09/04/18 15:30 19:01 05:30 WBC 11.8 H D RBC 5.42 Hgb 16.2 Hct 49.2 MCV 90.8 MCH 29.9 MCHC 32.9 RDW 15.0 H Plt Count 346 MPV 10.4 D-Dimer, Quantitative Sodium Potassium Chloride Carbon Dioxide Anion Gap BUN Creatinine Est GFR ( Amer) Est GFR (Non-Af Amer) POC Glucose (mg/dL) 94 Random Glucose Hemoglobin A1c Calcium Total Bilirubin AST ALT Alkaline Phosphatase Troponin I 0.03 D Total Protein Albumin Globulin Albumin/Globulin Ratio Urine Color Urine Appearance Urine pH Ur Specific [place] Urine Protein Urine Glucose (UA) Urine Ketones Urine Blood Urine Nitrate Urine Bilirubin Urine Urobilinogen Ur Leukocyte Esterase Urine RBC Urine WBC Ur Epithelial Cells Urine Bacteria 09/04/18 09/04/18 05:30 08:40 WBC RBC Hgb Hct MCV MCH MCHC RDW Plt Count MPV D-Dimer, Quantitative Sodium 136 Potassium 4.6 Chloride 98 Carbon Dioxide 28 Anion Gap 14 BUN 31 H Creatinine 1.5 Est GFR ( Amer) > 60 Est GFR (Non-Af Amer) 51 POC Glucose (mg/dL) Random Glucose 155 H Hemoglobin A1c Calcium 9.9 Total Bilirubin 0.5 AST 43 ALT 56 Alkaline Phosphatase 91 Troponin I Total Protein 7.9 Albumin 4.2 Globulin 3.7 Albumin/Globulin Ratio 1.2 Urine Color Yellow Urine Appearance Clear Urine pH 6.5 Ur Specific [place] 1.025 Urine Protein Trace H Urine Glucose (UA) Negative Urine Ketones Negative Urine Blood Negative Urine Nitrate Negative Urine Bilirubin Negative Urine Urobilinogen 0.2 Ur Leukocyte Esterase Negative Urine RBC Negative Urine WBC 1 - 3 Ur Epithelial Cells 1 - 3 Urine Bacteria Few Assessment & Plan - Assessment and Plan (Free Text) Assessment: Patient is a 43 M with a history of asthma and hypertension who presented with complaints of hot flashes and desequilibrium when walking. -MRI shows white matter changes most likely due to hypoxia secondary to obstruct maria luisa sleep apnea. Hypoplasia seen is from ; patient's mother had severe alcohol abuse while with patient and subsequently a year after of patient due to alcoholic liver disease. -Patient is to have a repeated MRI with contrast to monitor periventricular matter changes in 6 months -Provided patient with contact information for to follow up with us at the clinic
--- NOTE | 2018-09-04 13:42 | PN ---
DATE: 09/04/2018 SUBJECTIVE: The patient denies any headache, chest pain or dizziness. PHYSICAL EXAMINATION: VITAL SIGNS: Blood pressure 147/85, heart rate 87, temperature 97.5, respiration 20. HEENT: Normocephalic. CHEST: Clear. HEART: Sounds regular. EXTREMITIES: No edema. LABORATORY DATA: Today's hemoglobin and hematocrit 16.2 and 49.2, white count 11.8, platelet count 346,000. The SMA-7 is within normal limits except for glucose 155 and BUN of 31. Brain MRI report, no acute intracranial abnormality. Confluent periventricular white matter changes with paucity of the periventricular white matter is likely related to periventricular leukomalacia. Hypoplasia of the corpus callosum, hypothalamus, and hypoplasia of the optic nerves. Echo revealed moderate to severe concentric LVH with normal systolic function and mild tricuspid insufficiency. ASSESSMENT: 1. Uncontrolled hypertension. 2. 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 RECOMMENDATIONS: Continue aspirin 81 mg once a day, clonidine 0.2 mg twice a day, Cozaar 100 mg twice a day, hydrochlorothiazide 25 mg once a day. Reno Torres MD
--- NOTE | 2018-09-04 15:01 | CP.PCM.DIS ---
<BurrowsMarielena L - Last Filed: 09/04/18 17:25> Provider - Provider Date of Admission: 09/02/18 17:33 Attending physician: Harleen Patel MD Primary care physician: Dr. Bauer Consults: 09/03/18 02:42 Cardiology Consult Routine Comment: Consulting Provider: Reno Torres Consulting Physician: Reno Torres Reason for Consult: ACS r/o 09/03/18 14:16 Neurology Consult Routine Comment: Consulting Provider: Ramo Maradiaga Consulting Physician: Ramo Maradiaga Reason for Consult: pre-syncope, ?HX of CVA Time Spent in preparation of Discharge (in minutes): 35 Diagnosis - Discharge Diagnosis (1) Hypertensive urgency Status: Resolved (2) Near syncope Status: Resolved Hospital Course - Lab Results Lab Results: Most Recent Lab Values WBC 11.8 10^3/uL (4.5-11.0) H D 09/04/18 05:30 RBC 5.42 10^6/uL (3.5-6.1) 09/04/18 05:30 Hgb 16.2 g/dL (14.0-18.0) 09/04/18 05:30 Hct 49.2 % (42.0-52.0) 09/04/18 05:30 MCV 90.8 fl (80.0-105.0) 09/04/18 05:30 MCH 29.9 pg (25.0-35.0) 09/04/18 05:30 MCHC 32.9 g/dl (31.0-37.0) 09/04/18 05:30 RDW 15.0 % (11.5-14.5) H 09/04/18 05:30 Plt Count 346 10^3/uL (120.0-450.0) 09/04/18 05:30 MPV 10.4 fl (7.0-11.0) 09/04/18 05:30 Gran % 61.3 % (50.0-68.0) 09/02/18 23:59 Lymph % (Auto) 29.3 % (22.0-35.0) 09/02/18 23:59 [place] % (Auto) 7.7 % (1.0-6.0) H 09/02/18 23:59 Eos % (Auto) 1.6 % (1.5-5.0) 09/02/18 23:59 Baso % (Auto) 0.1 % (0.0-3.0) 09/02/18 23:59 Gran # 5.81 (1.4-6.5) 09/02/18 23:59 Lymph # (Auto) 2.8 (1.2-3.4) 09/02/18 23:59 [place] # (Auto) 0.7 (0.1-0.6) H 09/02/18 23:59 Eos # (Auto) 0.2 (0.0-0.7) 09/02/18 23:59 Baso # (Auto) 0.01 K/mm3 (0.0-2.0) 09/02/18 23:59 D-Dimer, Quantitative < 200 ng/mlDDU (0-243) 09/03/18 10:50 Sodium 136 mmol/L (132-148) 09/04/18 05:30 Potassium 4.6 mmol/L (3.6-5.0) 09/04/18 05:30 Chloride 98 mmol/L (98-107) 09/04/18 05:30 Carbon Dioxide 28 mmol/L (21-33) 09/04/18 05:30 Anion Gap 14 (10-20) 09/04/18 05:30 BUN 31 mg/dL (7-21) H 09/04/18 05:30 Creatinine 1.5 mg/dl (0.8-1.5) 09/04/18 05:30 Est GFR ( Amer) > 60 09/04/18 05:30 Est GFR (Non-Af Amer) 51 09/04/18 05:30 POC Glucose (mg/dL) 94 mg/dL (65-110) 09/03/18 19:01 Random Glucose 155 mg/dL (70-110) H 09/04/18 05:30 Hemoglobin A1c 6.2 % (4.2-6.5) 09/03/18 06:00 Calcium 9.9 mg/dL (8.4-10.5) 09/04/18 05:30 Phosphorus 2.3 mg/dL (2.5-4.5) L 09/02/18 23:59 Magnesium 2.0 mg/dL (1.7-2.2) 09/02/18 23:59 Total Bilirubin 0.5 mg/dL (0.2-1.3) 09/04/18 05:30 AST 43 U/L (17-59) 09/04/18 05:30 ALT 56 U/L (7-56) 09/04/18 05:30 Alkaline Phosphatase 91 U/L (38-126) 09/04/18 05:30 Total Creatine Kinase 1027 U/L (35-230) H 09/02/18 15:50 CK-MB (CK-2) 1.6 ng/mL (0.0-3.6) 09/02/18 15:50 CK-MB (CK-2) % Cancelled 09/02/18 15:50 Troponin I 0.02 ng/mL D 09/04/18 05:30 Total Protein 7.9 g/dL (5.8-8.3) 09/04/18 05:30 Albumin 4.2 g/dL (3.0-4.8) 09/04/18 05:30 Globulin 3.7 gm/dL 09/04/18 05:30 Albumin/Globulin Ratio 1.2 (1.1-1.8) 09/04/18 05:30 Triglycerides 170 mg/dL (35-160) H 09/03/18 06:00 Cholesterol 170 mg/dL (130-200) 09/03/18 06:00 LDL Cholesterol Direct 75 mg/dL (0-129) 09/03/18 06:00 HDL Cholesterol 48 mg/dL (29-60) 09/03/18 06:00 Free T4 1.17 ng/dL (0.78-2.19) 09/03/18 06:00 TSH 3rd Generation 4.61 mIU/mL (0.46-4.68) 09/03/18 06:00 Urine Color Yellow (YELLOW) 09/04/18 08:40 Urine Appearance Clear (CLEAR) 09/04/18 08:40 Urine pH 6.5 (4.7-8.0) 09/04/18 08:40 Ur Specific [place] 1.025 (1.005-1.035) 09/04/18 08:40 Urine Protein Trace mg/dL (<30 mg/dL) H 09/04/18 08:40 Urine Glucose (UA) Negative mg/dL (NEGATIVE) 09/04/18 08:40 Urine Ketones Negative mg/dL (NEGATIVE) 09/04/18 08:40 Urine Blood Negative (NEGATIVE) 09/04/18 08:40 Urine Nitrate Negative (NEGATIVE) 09/04/18 08:40 Urine Bilirubin Negative (NEGATIVE) 09/04/18 08:40 Urine Urobilinogen 0.2 E.U./dL (<1 E.U./dL) 09/04/18 08:40 Ur Leukocyte Esterase Negative Latasha/uL (NEGATIVE) 09/04/18 08:40 Urine RBC Negative /hpf (0-2) 09/04/18 08:40 Urine WBC 1 - 3 /hpf (0-6) 09/04/18 08:40 Ur Epithelial Cells 1 - 3 /hpf (0-5) 09/04/18 08:40 Urine Bacteria Few /hpf (NONE) 09/04/18 08:40 Urine Opiates Screen Negative (NEGATIVE) 09/03/18 00:46 Urine Methadone Screen Negative (NEGATIVE) 09/03/18 00:46 Ur Barbiturates Screen Negative (NEGATIVE) 09/03/18 00:46 Ur Phencyclidine Scrn Negative (NEGATIVE) 09/03/18 00:46 Ur Amphetamines Screen Negative (NEGATIVE) 09/03/18 00:46 U Benzodiazepines Scrn Negative (NEGATIVE) 09/03/18 00:46 U Oth Cocaine Metabols Negative (NEGATIVE) 09/03/18 00:46 U Cannabinoids Screen Negative (NEGATIVE) 09/03/18 00:46 Influenza Typ A,B (EIA) Negative for flu a/b (NEGATIVE) 09/03/18 01:30 Ur L.pneumophila Ag Negative (NEGATIVE) 09/04/18 08:40 - Hospital Course Hospital Course: On admission: 43M w/ a PMH of asthma, and HTN presented to [facility] on 09/02 after having [employer] called on him earlier in the day while he was visiting family member for complaints of syncope/near syncope. Patient reported that for the past week he has been having complaints of cough/ asthma exacerbation, fevers, prior to complaints of lightheadedness patient reported taking promethazine and losartan. Patient reports during [employer] he was asked to ambulated and was subsequently shown to have gait instability. During [employer] CONTROL patient was normotensive as reported by patient. He states he felt dizzy during [employer] however did not loose consciousness. Upon evaluation patient is no longer complaining of dizziness or lightheadedness. After being transferred to floors, he was found to have elevated blood pressure and pressure like chest pain. He reports the pressure began after being given apresoline dose. Upon ROS patient is complaining of shortness of breath, cough, improved chest pressure. Denies abd pain, n/v/d/c, hematuria, dysuria. During hospital stay: Patient had echocardiogram done which showed moderate to severe concentric LVH, normal LVEF, normal LV segmental wall motion, mild TR, EF 60%. Patient also had head CT which showed no acute hemorrhage, periventricular white matter hypodensity, nonspecific. 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 Carotid and vertebral duplex showed bilateral 20-39% proximal ICA stenoses. Product Lead Dr. Garcia was consulted. 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 Hypoplasia of corpus callosum, buphthalmos, h ypoplasia of optic nerves. Patient complained of chest pain during hospital stay. Troponins were negative x5. EKG showed unusual P axis, possible ectopic atrial rhythm, T wave abnormality. UDS was negative. Patient had complained of cough and so CXR was done which was unremarkable. Flu and urine legionella were negative. UA was unremarkable. Patient was also noted to have elevated blood pressures. Patient was treated with xopenex, nitro-bid robitussin, aspirin, levaquin, prednisone, duonebs, HCTZ, losartan. Patient was discharged with clonidine, losartan and HCTZ and instructed to follow up with primary medical doctor. Please see EMR for full summary. - Date & Time of H&P Date of H&P: 09/03/18 Time of H&P: 01:43 Discharge Exam - Additional Findings Additional findings: - Head Exam Head Exam: ATRAUMATIC, NORMAL INSPECTION, NORMOCEPHALIC - Eye Exam Eye Exam: EOMI - Respiratory Exam Respiratory Exam: Clear to Auscultation Bilateral, NORMAL BREATHING PATTERN - Cardiovascular Exam Cardiovascular Exam: REGULAR RHYTHM, +S1, +S2 - GI/Abdominal Exam GI & Abdominal Exam: Normal Bowel Sounds, Soft - Neurological Exam Neurological exam: Alert, CN II-XII Intact, Oriented x3 - Psychiatric Exam Psychiatric exam: Normal Affect, Normal Mood - Skin Skin Exam: Normal Color, Warm Discharge Plan - Discharge Medications Prescriptions: RX: Aspirin [Aspirin Chewable] 81 mg PO DAILY 14 Days chew Blood Pressure Test Kit-Medium [Blood Pressure Cuff Monitor] 1 each MC DAILY #1 kit RX: cloNIDine [Catapres] 0.2 mg PO BID 14 Days tab RX: hydroCHLOROthiazide [Hydrodiuril] 25 mg PO DAILY 14 Days tab RX: Losartan [Cozaar] 150 mg PO DAILY 14 Days tab - Follow Up Plan Condition: FAIR Disposition: HOME/ ROUTINE Instructions: High Blood Pressure (DC) Additional Instructions: Please follow up with your primary medical doctor Dr. Bauer within one week. Follow up with Dr. Torres (Product Lead) within one week. Also follow up Dr. Maradiaga your neurologist within one to two weeks. It has been recommended that you get a repeat brain MRI with contrast for followup in 6 months. Please monitor your blood pressure at home and keep a log of your blood pressure readings to give to your primary doctor. Please take your medications as prescribed and follow a low sodium diet. Return to ED if symptoms return or worsen. Referrals: Akira Bauer MD [Non-Staff] - Reno Torres MD [Staff Provider] - 1 Week ( ) Ramo Maradiaga MD [Staff Provider] - <Harleen Patel - Last Filed: 09/05/18 17:31> Provider - Provider Date of Admission: 09/02/18 17:33 Attending physician: Harleen Patel MD Consults: 09/03/18 02:42 Cardiology Consult Routine Comment: Consulting Provider: Reno Torres Consulting Physician: Reno Torres Reason for Consult: ACS r/o 09/03/18 14:16 Neurology Consult Routine Comment: Consulting Provider: Ramo Maradiaga Consulting Physician: Ramo Maradiaga Reason for Consult: pre-syncope, ?HX of CVA Hospital Course - Lab Results Lab Results: Most Recent Lab Values WBC 11.8 10^3/uL (4.5-11.0) H D 09/04/18 05:30 RBC 5.42 10^6/uL (3.5-6.1) 09/04/18 05:30 Hgb 16.2 g/dL (14.0-18.0) 09/04/18 05:30 Hct 49.2 % (42.0-52.0) 09/04/18 05:30 MCV 90.8 fl (80.0-105.0) 09/04/18 05:30 MCH 29.9 pg (25.0-35.0) 09/04/18 05:30 MCHC 32.9 g/dl (31.0-37.0) 09/04/18 05:30 RDW 15.0 % (11.5-14.5) H 09/04/18 05:30 Plt Count 346 10^3/uL (120.0-450.0) 09/04/18 05:30 MPV 10.4 fl (7.0-11.0) 09/04/18 05:30 Gran % 61.3 % (50.0-68.0) 09/02/18 23:59 Lymph % (Auto) 29.3 % (22.0-35.0) 09/02/18 23:59 [place] % (Auto) 7.7 % (1.0-6.0) H 09/02/18 23:59 Eos % (Auto) 1.6 % (1.5-5.0) 09/02/18 23:59 Baso % (Auto) 0.1 % (0.0-3.0) 09/02/18 23:59 Gran # 5.81 (1.4-6.5) 09/02/18 23:59 Lymph # (Auto) 2.8 (1.2-3.4) 09/02/18 23:59 [place] # (Auto) 0.7 (0.1-0.6) H 09/02/18 23:59 Eos # (Auto) 0.2 (0.0-0.7) 09/02/18 23:59 Baso # (Auto) 0.01 K/mm3 (0.0-2.0) 09/02/18 23:59 D-Dimer, Quantitative < 200 ng/mlDDU (0-243) 09/03/18 10:50 Sodium 136 mmol/L (132-148) 09/04/18 05:30 Potassium 4.6 mmol/L (3.6-5.0) 09/04/18 05:30 Chloride 98 mmol/L (98-107) 09/04/18 05:30 Carbon Dioxide 28 mmol/L (21-33) 09/04/18 05:30 Anion Gap 14 (10-20) 09/04/18 05:30 BUN 31 mg/dL (7-21) H 09/04/18 05:30 Creatinine 1.5 mg/dl (0.8-1.5) 09/04/18 05:30 Est GFR ( Amer) > 60 09/04/18 05:30 Est GFR (Non-Af Amer) 51 09/04/18 05:30 POC Glucose (mg/dL) 94 mg/dL (65-110) 09/03/18 19:01 Random Glucose 155 mg/dL (70-110) H 09/04/18 05:30 Hemoglobin A1c 6.2 % (4.2-6.5) 09/03/18 06:00 Calcium 9.9 mg/dL (8.4-10.5) 09/04/18 05:30 Phosphorus 2.3 mg/dL (2.5-4.5) L 09/02/18 23:59 Magnesium 2.0 mg/dL (1.7-2.2) 09/02/18 23:59 Total Bilirubin 0.5 mg/dL (0.2-1.3) 09/04/18 05:30 AST 43 U/L (17-59) 09/04/18 05:30 ALT 56 U/L (7-56) 09/04/18 05:30 Alkaline Phosphatase 91 U/L (38-126) 09/04/18 05:30 Total Creatine Kinase 1027 U/L (35-230) H 09/02/18 15:50 CK-MB (CK-2) 1.6 ng/mL (0.0-3.6) 09/02/18 15:50 CK-MB (CK-2) % Cancelled 09/02/18 15:50 Troponin I 0.02 ng/mL D 09/04/18 05:30 Total Protein 7.9 g/dL (5.8-8.3) 09/04/18 05:30 Albumin 4.2 g/dL (3.0-4.8) 09/04/18 05:30 Globulin 3.7 gm/dL 09/04/18 05:30 Albumin/Globulin Ratio 1.2 (1.1-1.8) 09/04/18 05:30 Triglycerides 170 mg/dL (35-160) H 09/03/18 06:00 Cholesterol 170 mg/dL (130-200) 09/03/18 06:00 LDL Cholesterol Direct 75 mg/dL (0-129) 09/03/18 06:00 HDL Cholesterol 48 mg/dL (29-60) 09/03/18 06:00 Free T4 1.17 ng/dL (0.78-2.19) 09/03/18 06:00 TSH 3rd Generation 4.61 mIU/mL (0.46-4.68) 09/03/18 06:00 Urine Color Yellow (YELLOW) 09/04/18 08:40 Urine Appearance Clear (CLEAR) 09/04/18 08:40 Urine pH 6.5 (4.7-8.0) 09/04/18 08:40 Ur Specific [place] 1.025 (1.005-1.035) 09/04/18 08:40 Urine Protein Trace mg/dL (<30 mg/dL) H 09/04/18 08:40 Urine Glucose (UA) Negative mg/dL (NEGATIVE) 09/04/18 08:40 Urine Ketones Negative mg/dL (NEGATIVE) 09/04/18 08:40 Urine Blood Negative (NEGATIVE) 09/04/18 08:40 Urine Nitrate Negative (NEGATIVE) 09/04/18 08:40 Urine Bilirubin Negative (NEGATIVE) 09/04/18 08:40 Urine Urobilinogen 0.2 E.U./dL (<1 E.U./dL) 09/04/18 08:40 Ur Leukocyte Esterase Negative Latasha/uL (NEGATIVE) 09/04/18 08:40 Urine RBC Negative /hpf (0-2) 09/04/18 08:40 Urine WBC 1 - 3 /hpf (0-6) 09/04/18 08:40 Ur Epithelial Cells 1 - 3 /hpf (0-5) 09/04/18 08:40 Urine Bacteria Few /hpf (NONE) 09/04/18 08:40 Urine Opiates Screen Negative (NEGATIVE) 09/03/18 00:46 Urine Methadone Screen Negative (NEGATIVE) 09/03/18 00:46 Ur Barbiturates Screen Negative (NEGATIVE) 09/03/18 00:46 Ur Phencyclidine Scrn Negative (NEGATIVE) 09/03/18 00:46 Ur Amphetamines Screen Negative (NEGATIVE) 09/03/18 00:46 U Benzodiazepines Scrn Negative (NEGATIVE) 09/03/18 00:46 U Oth Cocaine Metabols Negative (NEGATIVE) 09/03/18 00:46 U Cannabinoids Screen Negative (NEGATIVE) 09/03/18 00:46 Influenza Typ A,B (EIA) Negative for flu a/b (NEGATIVE) 09/03/18 01:30 Ur L.pneumophila Ag Negative (NEGATIVE) 09/04/18 08:40 Attending/Attestation - Attestation I have personally seen and examined this patient.: Yes I have fully participated in the care of the patient.: Yes I have reviewed all pertinent clinical information, including history, physical exam and plan: Yes Notes (Text): 09/05/18 17:25 Medical record note made by the resident after discussion with my direction and input after the patient was personally seen and examined by me. I have reviewed the chart and agree that the record accurately reflects by personal performance of the history, physical exam, data review, and medical decision-making, in the course for the patient. I have also personally directed the plan of care. 43 yrs old male with PMH of asthma, and HTN presented to [facility] on 09/02 after having [employer] called on him earlier in the day while he was visiting family member for complaints of syncope/near syncope. Patient reported that for the past week he has been having complaints of cough/ a, fevers, prior to complaints of lightheadedness patient reported taking promethazine and losartan. CT head was negative.There was no focal deficit. Carotid and vertebral duplex showed bilateral 20-39% proximal ICA stenoses. 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 Hypoplasia of corpus callosum, buphthalmos, hypoplasia of optic nerves. Echocardiogram done which showed moderate to severe concentric LVH, normal LVEF, normal LV segmental wall motion, mild TR, EF 60% During hospitalization, patient was found to have uncontrolled HTN. His medications were adjusted. Blood pressure is better controlled with Losartan/Clonidine and HCTZ. Issue of compliance with medication was discussed in detail. Management plan was discussed in detail with patient. Education was provided.
[2018-09-04 16:57] VITALS: BP 158/98; PULSE 78; RESP 19; TEMP 97.8; O2SAT 97
[2018-09-04] MEDS ORDERED: Influenza Vaccine 60 mcg/0.5 mL SYR (4YR UP) IM ONE (17:49)
--- NOTE | 2018-09-04 20:36 | CARD ---
APPROVED REPORT Date of service: 09/04/2018 EKG Measurement Heart [id number] <Conclusion> Normal sinus rhythm Moderate voltage criteria for LVH, may be normal variant T wave abnormality, consider inferolateral ischemia Abnormal ECG
== END 2018-09-04 18:54 | disposition home or self-care (01) ==
LOC: ED 14:56 → ERH 17:33 → 3RNO 20:48
PROVIDERS: ADMIT Internal Medicine; ATTEND Internal Medicine
DX: I16.0 Hypertensive urgency (principal); R55 Syncope and collapse; I10 Essential (primary) hypertension; J45.909 Unspecified asthma, uncomplicated; Q04.0 Congenital malformations of corpus callosum; H47.039 Optic nerve hypoplasia, unspecified eye; G47.33 Obstructive sleep apnea (adult) (pediatric); E66.01 Morbid (severe) obesity due to excess calories; Z68.34 Body mass index [BMI] 34.0-34.9, adult; Z23 Encounter for immunization
CPT/HCPCS: 36415; 70450; 70551; 71045; 80053; 80061; 80324; 80345; 80346; 80349; 80353; 80358; 80361; 81001; 82550; 82553; 82948; 83036; 83735; 83992; 84100; 84439; 84443; 84484; 85025; 85027; 85378; 87449; 87804; 87899; 90471; 90674; 93005; 93306; 93880; 94640; 94760; 96360; 99285; G0378; J0360; J1644; J1940; J7030